=== PATIENT | male | born 1965 | race African-American/Black ===

== ENCOUNTER 2023-06-07 09:23 | Emergency (ER) | payer BC, MEDICARE, SELFPAY | END 2023-06-07 11:35 | disposition home or self-care (01) | LOC: ERS 09:23 | DX: S40.021A Contusion of right upper arm, initial encounter (principal); I10 Essential (primary) hypertension; F17.210 Nicotine dependence, cigarettes, uncomplicated; Z55.6 Problems related to health literacy; Z75.3 Unavailability and inaccessibility of health-care facilities; Y31.XXXA Falling, lying or running before or into moving object, undetermined intent, initial encounter; Y93.84 Activity, sleeping | CPT/HCPCS: 99283 ==